=== PATIENT | female | born 1940 | race Hispanic/Latino ===

== ENCOUNTER 2018-08-16 13:19 | Inpatient (IN) | payer MEDICARE ==
[~2018-08-16] VITALS: Ht 152.4 cm; Wt 62.1 kg
[2018-08-16 14:13] LABS: CREATININE 0.6 mg/dL (0.5-1.5); POTASSIUM 3.5 mmol/L (3.5-5.1)
[2018-08-16] MEDS ORDERED: SODIUM CHLORIDE 0.9% 1000ML 1,000 ML IV ONE (14:17)
[2018-08-16 14:18] LABS: ALBUMIN 3.9 g/dL (3.5-5.0); BILIRUBIN,TOTAL 0.9 mg/dL (0.2-1.0); TOTAL PROTEIN, SERUM 7.9 g/dL (6.0-8.3)
[2018-08-16 14:18] LABS: BASOPHILS % (AUTO) 0.6 % (0.0-5.0); EOSINOPHILS % (AUTO) 0.2 % (0.0-8.0); HEMATOCRIT 43.2 % (36-48); LYMPHOCYTES % (AUTO) 8.6 % (21.0-51.0); MEAN CORPUSCULAR HEMOGLOBIN 32.6 pg (27.0-33.0); MEAN CORPUSCULAR HGB CONC 33.9 g/dL (32.0-36.0); MEAN CORPUSCULAR VOLUME 96.1 fL (79-99); MONOCYTES % (AUTO) 3.7 % (3.0-13.0); NEUTROPHILS % (AUTO) 86.9 % (40.0-77.0); PLATELET COUNT (AUTO) 229 K/uL (130-400); RED CELL DISTRIBUTION WIDTH 13.6 % (11.0-15.5); WHITE BLOOD COUNT (AUTO) 10.1 K/uL (4.8-10.8)
[2018-08-16] MEDS ORDERED: MORPHINE SULFATE 4 MG/1ML SYG ONE (14:18)
[2018-08-16] MEDS ORDERED: ONDANSETRON HCL 4 MG/2 ML VIAL ONE (14:30)
[2018-08-16 14:38] LABS: INR 0.99 (0.85-1.15); PARTIAL THROMBOPLASTIN TIME 27.1 SEC (26.3-35.5); PROTHROMBIN TIME 10.4 SEC (9.6-11.6)
[2018-08-16 14:39] LABS: APPEARANCE,URINE Cloudy (CLEAR); BILIRUBIN,URINE Negative (NEGATIVE); COLOR,URINE Dark Yellow (YELLOW); GLUCOSE, URINE (UA) Negative (NEGATIVE); KETONES,URINE 40 mg/dL (NEGATIVE); LEUKOCYTE ESTERASE ,URINE Small (NEGATIVE); NITRATE,URINE Negative (NEGATIVE); OCCULT BLOOD,URINE Negative (NEGATIVE); PH,URINE >=9.0 (5.0-8.0); PROTEIN,URINE POS 1+ (NEGATIVE)
[2018-08-16 14:56] LABS: AMORPHOUS SEDIMENT,UR Many /LPF (None Seen); BACTERIA,URINE Few /HPF (None Seen); RBC,URINE None Seen /HPF (0-1)
[2018-08-16] MEDS ORDERED: MORPHINE SULFATE 5 MG/ML VIAL IV PRN (17:00)
[2018-08-16] MEDS ORDERED: MIDAZOLAM HCL 1 MG/ML 2ML VIAL ONE (17:35)
[2018-08-16] MEDS ORDERED: MORPHINE SULFATE 2 MG/ML 1ML SYG ONE (17:35)
[2018-08-16 19:30] VITALS: BP 134/80
[2018-08-16] MEDS ORDERED: ERGO500014 PO (20:55)
[2018-08-16] MEDS ORDERED: MIRALAX PO (20:55)
[2018-08-16] MEDS ORDERED: LISI10TA7 PO (20:55)
[2018-08-16] MEDS: PANTOPRAZOLE 40 MG/VIAL IVP SCH (21:07)
[2018-08-16] MEDS: SODIUM CHLORIDE 0.9% 1000ML 1,000 ML IV SCH (21:07)
[2018-08-16] MEDS: LEVOFLOXACIN 500 MG/D5W 100 ML 100 ML IV SCH (21:08)
[2018-08-16] MEDS: ONDANSETRON HCL 4 MG/2 ML VIAL IVP PRN (23:35)
[2018-08-16] MEDS: MORPHINE SULFATE 2 MG/ML 1ML SYG IV PRN (23:40)
[2018-08-17] VITALS (23 sets, daily range): BP systolic 118–168; BP diastolic 54–82
[2018-08-17] MEDS: SODIUM CHLORIDE 0.9% 1000ML 1,000 ML IV SCH ×3 (04:38→21:30)
[2018-08-17] MEDS ORDERED: LACTATED RINGERS 1000ML 1,000 ML IV ONE (06:59)
[2018-08-17] MEDS ORDERED: DEXAMETHASONE SOD PHOSPHATE 10MG/ML 1ML VIAL ONE (07:37)
[2018-08-17] MEDS ORDERED: ROCURONIUM 10MG/1ML SYR 10 MG/ML ML ONE (07:37)
[2018-08-17] MEDS ORDERED: LIDOCAINE PF 2% 5ML ABBOJECT ONE (07:37)
[2018-08-17] MEDS ORDERED: ONDANSETRON HCL 4 MG/2 ML VIAL ONE (07:37)
[2018-08-17] MEDS ORDERED: NEOSTIGMINE 5MG/5ML SYR IV ONE ×2 (07:37→08:30)
[2018-08-17] MEDS ORDERED: MIDAZOLAM HCL 1 MG/ML 2ML VIAL ONE (07:37)
[2018-08-17] MEDS ORDERED: SUCCINYLCHOLINE 200MG/10ML SYR ONE (07:37)
[2018-08-17] MEDS ORDERED: PROPOFOL 10 MG/ML 20ML VIAL IV ONE (07:37)
[2018-08-17] MEDS ORDERED: FENTANYL CITRATE PF 50 MCG/1 ML 2ML VIAL ONE (07:38)
[2018-08-17] MEDS ORDERED: GLYCOPYRROLATE 1 MG/5 ML SYRINGE ONE (07:44)
[2018-08-17] MEDS ORDERED: BUPIVACAINE/EPI/PF 0.5% 30ML VIAL IJ ONE (07:50)
[2018-08-17] MEDS ORDERED: MEPERIDINE-PF 25 MG/ML SYG ONE ×2 (08:43→09:01)
[2018-08-17] MEDS ORDERED: METOCLOPRAMIDE 10 MG/2 ML VIAL ONE (08:49)
[2018-08-17] MEDS: ONDANSETRON HCL 4 MG/2 ML VIAL IVP PRN (08:52)
[2018-08-17] MEDS ORDERED: PANTOPRAZOLE SODIUM 40 MG TABLET.DR PO SCH (09:00)
[2018-08-17] MEDS: MORPHINE SULFATE 2 MG/ML 1ML SYG IV PRN (10:01)
[2018-08-17] MEDS: PANTOPRAZOLE 40 MG/VIAL IVP SCH (10:01)
[2018-08-17] MEDS ORDERED: ACETAMINOPHEN 325 MG TAB PO PRN (11:30)
[2018-08-17] MEDS ORDERED: TRAMADOL HCL 50 MG TABLET PO SCH ×2 (13:30)
[2018-08-17] MEDS: TRAMADOL HCL 50 MG TABLET PO PRN (13:37)
[2018-08-17] MEDS ORDERED: TRAMADOL HCL 50 MG TABLET PO PRN (13:45)
[2018-08-17] MEDS: LEVOFLOXACIN 500 MG/D5W 100 ML 100 ML IV SCH (17:37)
[2018-08-17] MEDS ORDERED: LACTULOSE 20 GM/30 ML UDCUP PO SCH (21:15)
[2018-08-17] MEDS ORDERED: LACTULOSE 20 GM/30 ML UDCUP PO PRN (21:15)
[2018-08-17] MEDS: DOCUSATE SODIUM 100 MG CAP PO SCH (21:30)
[2018-08-18 03:00] VITALS: BP 145/72
[2018-08-18 04:32] LABS: BASOPHILS % (AUTO) 0.4 % (0.0-5.0); EOSINOPHILS % (AUTO) 0.7 % (0.0-8.0); HEMATOCRIT 35.9 % (36-48); MEAN CORPUSCULAR HEMOGLOBIN 33.1 pg (27.0-33.0); MEAN CORPUSCULAR HGB CONC 33.7 g/dL (32.0-36.0); MEAN CORPUSCULAR VOLUME 98.3 fL (79-99); MONOCYTES % (AUTO) 11.1 % (3.0-13.0); NEUTROPHILS % (AUTO) 68.8 % (40.0-77.0); PLATELET COUNT (AUTO) 200 K/uL (130-400); RED BLOOD CELL COUNT(AUTO) 3.66 MIL/uL (4.00-5.50); RED CELL DISTRIBUTION WIDTH 13.8 % (11.0-15.5); WHITE BLOOD COUNT (AUTO) 7.5 K/uL (4.8-10.8)
[2018-08-18 04:45] LABS: CREATININE 0.6 mg/dL (0.5-1.5); POTASSIUM 3.8 mmol/L (3.5-5.1)
[2018-08-18 07:38] VITALS: BP 132/72
[2018-08-18] MEDS: SODIUM CHLORIDE 0.9% 1000ML 1,000 ML IV SCH (08:34)
[2018-08-18] MEDS: DOCUSATE SODIUM 100 MG CAP PO SCH (08:35)
[2018-08-18] MEDS ORDERED: POLYETHYLENE GLYCOL 3350 17 GM POWD.PACK PO SCH (09:00)
[2018-08-18] MEDS ORDERED: LISINOPRIL 10 MG TABLET PO SCH (09:00)
[2018-08-18] MEDS ORDERED: ERGOCALCIFEROL (VITAMIN D2) 50,000 UNIT CAPSULE PO SCH (09:00)
[2018-08-18] MEDS ORDERED: PANTOPRAZOLE SODIUM 40 MG TABLET.DR PO SCH (09:00)
[2018-08-18 11:43] VITALS: BP 121/60
[2018-08-18] MEDS: TRAMADOL HCL 50 MG TABLET PO PRN (15:16)
[2018-08-18 16:06] VITALS: BP 131/70
== END 2018-08-18 16:00 | disposition home or self-care (01) | DRG 351 ==
LOC: EDH 13:19 → EDHIP 16:57 → 3BH 19:27
PROVIDERS: ADMIT Hospitalist; ATTEND Hospitalist
PROC: 0YU60JZ Supplement Left Inguinal Region with Synthetic Substitute, Open Approach (ICD-10-PCS; principal; 2018-08-17 07:30)
DX: K40.30 Unilateral inguinal hernia, with obstruction, without gangrene, not specified as recurrent (principal); N39.0 Urinary tract infection, site not specified; I10 Essential (primary) hypertension; Z85.41 Personal history of malignant neoplasm of cervix uteri
CPT/HCPCS: 36415; 71045; 74176; 80048; 80053; 81001; 81003; 83605; 85025; 85610; 85651; 85730; 86140; 87040; 87088; 93005; A4344; C1781; C9113; J0330; J0696; J1100; J1650; J1956; J2001; J2175; J2250; J2270; J2405; J2543; J2704; J2710; J2765; J3010; J3370; J3490; J7030; J7120

== ENCOUNTER 2018-08-19 15:16 | Inpatient (IN) | payer MEDICARE ==
[~2018-08-19] VITALS: Ht 149.9 cm; Wt 64.4 kg
[~2018-08-19 15:16] MED LIST: ERGO500014 PO; LISI10TA7 PO; MIRALAX PO
[2018-08-19 15:53] LABS: APPEARANCE,URINE Clear (CLEAR); BILIRUBIN,URINE Negative (NEGATIVE); COLOR,URINE Yellow (YELLOW); GLUCOSE, URINE (UA) Negative (NEGATIVE); KETONES,URINE Negative (NEGATIVE); LEUKOCYTE ESTERASE ,URINE Negative (NEGATIVE); NITRATE,URINE Negative (NEGATIVE); OCCULT BLOOD,URINE Negative (NEGATIVE); PROTEIN,URINE Negative (NEGATIVE)
[2018-08-19 15:55] LABS: BASOPHILS % (AUTO) 0.3 % (0.0-5.0); EOSINOPHILS % (AUTO) 1.4 % (0.0-8.0); LYMPHOCYTES % (AUTO) 15.3 % (21.0-51.0); MEAN CORPUSCULAR HEMOGLOBIN 33.4 pg (27.0-33.0); MEAN CORPUSCULAR HGB CONC 34.1 g/dL (32.0-36.0); MEAN CORPUSCULAR VOLUME 97.8 fL (79-99); MONOCYTES % (AUTO) 12.6 % (3.0-13.0); NEUTROPHILS % (AUTO) 70.4 % (40.0-77.0); PLATELET COUNT (AUTO) 210 K/uL (130-400); RED BLOOD CELL COUNT(AUTO) 3.99 MIL/uL (4.00-5.50); RED CELL DISTRIBUTION WIDTH 13.3 % (11.0-15.5)
[2018-08-19 16:05] LABS: CREATININE 0.5 mg/dL (0.5-1.5); PARTIAL THROMBOPLASTIN TIME 31.5 SEC (26.3-35.5); POTASSIUM 3.9 mmol/L (3.5-5.1); PROTHROMBIN TIME 10.5 SEC (9.6-11.6)
[2018-08-19 16:11] LABS: BILIRUBIN,TOTAL 1.2 mg/dL (0.2-1.0); TOTAL PROTEIN, SERUM 6.8 g/dL (6.0-8.3)
[2018-08-19] MEDS ORDERED: VANCOMYCIN 1GM+NS 250ML 250 ML IV ONE (16:27)
[2018-08-19] MEDS ORDERED: SODIUM CHLORIDE 0.9% 1000ML 1,000 ML IV SCH (17:53)
[2018-08-19] MEDS ORDERED: SODIUM CHLORIDE 0.9% 50 ML IV ONE (17:58)
[2018-08-19] MEDS ORDERED: CEFTRIAXONE SODIUM 1 GM ONE (17:58)
[2018-08-19] MEDS ORDERED: ZOSYN 3.375GM+NS 50ML 50 ML IV ONE (17:59)
[2018-08-19] MEDS ORDERED: ONDANSETRON HCL 4 MG/2 ML VIAL IV PRN (18:00)
[2018-08-19] MEDS ORDERED: CEFTRIAXONE SODIUM 1 GM IVP SCH (18:00)
[2018-08-19] MEDS ORDERED: HYDROCODONE/ACETAMINOPHEN 5/325 MG TAB PO PRN (18:00)
[2018-08-19] MEDS ORDERED: ACETAMINOPHEN 325 MG TAB PO PRN (18:00)
[2018-08-19 19:16] VITALS: BP 141/70
[2018-08-19 19:39] VITALS: BP 123/69
[2018-08-19] MEDS: ZOSYN 3.375GM+NS 50ML 50 ML IV SCH (21:45)
[2018-08-19 23:20] VITALS: BP 121/64
[2018-08-20 03:32] VITALS: BP 98/50
[2018-08-20 04:59] LABS: BASOPHILS % (AUTO) 0.6 % (0.0-5.0); EOSINOPHILS % (AUTO) 1.6 % (0.0-8.0); HEMATOCRIT 35.2 % (36-48); LYMPHOCYTES % (AUTO) 18.8 % (21.0-51.0); MEAN CORPUSCULAR HEMOGLOBIN 32.2 pg (27.0-33.0); MEAN CORPUSCULAR HGB CONC 33.1 g/dL (32.0-36.0); MEAN CORPUSCULAR VOLUME 97.4 fL (79-99); MONOCYTES % (AUTO) 14.6 % (3.0-13.0); NEUTROPHILS % (AUTO) 64.4 % (40.0-77.0); PLATELET COUNT (AUTO) 186 K/uL (130-400); RED BLOOD CELL COUNT(AUTO) 3.61 MIL/uL (4.00-5.50); RED CELL DISTRIBUTION WIDTH 13.3 % (11.0-15.5); WHITE BLOOD COUNT (AUTO) 7.7 K/uL (4.8-10.8)
[2018-08-20 05:10] LABS: ALBUMIN 2.4 g/dL (3.5-5.0); BILIRUBIN,TOTAL 1.2 mg/dL (0.2-1.0); CREATININE 0.5 mg/dL (0.5-1.5); POTASSIUM 3.8 mmol/L (3.5-5.1); TOTAL PROTEIN, SERUM 5.7 g/dL (6.0-8.3)
[2018-08-20] MEDS: ZOSYN 3.375GM+NS 50ML 50 ML IV SCH ×2 (05:44→13:09)
[2018-08-20 07:00] VITALS: BP 153/75
[2018-08-20] MEDS ORDERED: LACTULOSE 20 GM/30 ML UDCUP PO PRN (07:15)
[2018-08-20] MEDS ORDERED: LISINOPRIL 10 MG TABLET PO SCH (09:00)
[2018-08-20] MEDS ORDERED: PANTOPRAZOLE SODIUM 40 MG TABLET.DR PO SCH (09:00)
[2018-08-20] MEDS ORDERED: ENOXAPARIN SODIUM 30 MG/0.3 ML SQ SCH (09:00)
[2018-08-20] MEDS ORDERED: MAGNESIUM HYDROXIDE 30 ML/UDCUP PO SCH (09:30)
[2018-08-20 11:00] VITALS: BP 142/72
[2018-08-20 16:00] VITALS: BP 156/77
[2018-08-21] MEDS ORDERED: POLYETHYLENE GLYCOL 3350 17 GM POWD.PACK PO SCH (09:00)
[2018-08-21] MEDS ORDERED: LISINOPRIL 10 MG TABLET PO SCH (09:00)
== END 2018-08-20 18:19 | disposition home or self-care (01) | DRG 862 ==
LOC: EDH 15:16 → 3AH 17:53
PROVIDERS: ADMIT Hospitalist; ATTEND Hospitalist
DX: T81.4XXA Infection following a procedure, initial encounter (principal); A41.9 Sepsis, unspecified organism; I10 Essential (primary) hypertension; K59.00 Constipation, unspecified; Z82.5 Family history of asthma and other chronic lower respiratory diseases; Z83.3 Family history of diabetes mellitus; Z80.9 Family history of malignant neoplasm, unspecified; Z28.21 Immunization not carried out because of patient refusal
CPT/HCPCS: 36415; 71045; 74176; 80053; 81003; 83605; 85025; 85610; 85651; 85730; 86140; 87040; J0696; J1650; J2543; J3370; J7030

== ENCOUNTER 2020-05-11 18:05 | Emergency (ER) | payer MEDICARE ==
[2020-05-11 18:38] LABS: BASOPHILS % (AUTO) 0.7 % (0.0-5.0); EOSINOPHILS % (AUTO) 3.3 % (0.0-8.0); HEMATOCRIT 37.9 % (36-48); LYMPHOCYTES % (AUTO) 25.6 % (21.0-51.0); MEAN CORPUSCULAR HGB CONC 33.5 g/dL (32.0-36.0); MEAN CORPUSCULAR VOLUME 95.5 fL (79-99); MONOCYTES % (AUTO) 9.8 % (3.0-13.0); NEUTROPHILS % (AUTO) 60.2 % (40.0-77.0); PLATELET COUNT (AUTO) 239 K/uL (130-400); RED BLOOD CELL COUNT(AUTO) 3.97 MIL/uL (4.00-5.50); RED CELL DISTRIBUTION WIDTH 13.2 % (11.0-15.5); WHITE BLOOD COUNT (AUTO) 7.2 K/uL (4.8-10.8)
[2020-05-11 18:58] LABS: CREATININE 1.1 mg/dL (0.5-1.5); POTASSIUM 4.1 mmol/L (3.5-5.1)
[2020-05-11 19:03] LABS: ALBUMIN 3.5 g/dL (3.5-5.0); BILIRUBIN,TOTAL 0.6 mg/dL (0.2-1.0); TOTAL PROTEIN, SERUM 7.1 g/dL (6.0-8.3)
[2020-05-11] MEDS ORDERED: SODIUM CHLORIDE 0.9% 50 ML IV ONE (20:46)
[2020-05-11] MEDS ORDERED: CEFTRIAXONE SODIUM 1 GM ONE (20:46)
== END 2020-05-11 22:10 | disposition home or self-care (01) ==
LOC: EDH 18:05
DX: L03.116 Cellulitis of left lower limb (principal); I10 Essential (primary) hypertension
CPT/HCPCS: 36415; 80053; 83605; 85025; 85378; 93971; 96374; 99284; J0696

== ENCOUNTER → 2021-09-16 | Outpatient (CLI) | payer MEDICARE ==
[~2021-09-16] MED LIST changes: +LISI10TA24 PO; -LISI10TA7 PO
== END | disposition home or self-care (01) ==
LOC: RAH 08:35
PROVIDERS: ATTEND Internal Medicine Gastroenterology
DX: R10.11 Right upper quadrant pain (principal)
CPT/HCPCS: 76700